=== PATIENT | female | born 1955 | race Asian ===

== ENCOUNTER → 2023-08-28 12:21 | Outpatient (CLI) | payer BC, SELFPAY ==
--- NOTE | 2023-08-28 12:22 | DI.RAD.S_ITS ---
Bone Density Report Name: PATSY KING Age: 68 Sex: Female Ethnicity: Date of : 1955 Indication: postmenopausal; screening for osteoporosis; Referring Provider: CB GUAJARDO Study: Bone densitometry was performed. Exam Date: August 28, 2023 Accession number: [id number] Bone Density: Region BMD T-score Z-score Classification AP Spine(L1-L4) 0.985 -0.6 1.3 Normal Femoral Neck (Left) 0.701 -1.3 0.2 Osteopenia Total Hip (Left) 0.930 -0.1 1.2 Normal Femoral Neck (Right) 0.673 -1.6 0.0 Osteopenia Total Hip (Right) 0.928 -0.1 1.2 Normal Total Hip Mean 0.929 -0.1 1.2 Normal World Health Organization criteria for BMD impression classify patients as: Normal (T-score at or above -1.0), Osteopenia (T-score between -1.0 and -2.5), or Osteoporosis (T-score at or below -2.5). 10-year Fracture Risk(1): Major Osteoporotic Fracture 8.6% Hip Fracture 0.9% Reported Risk Factors: [place] (), Neck BMD=0.673, BMI=32.5 (1) FRAX(R) Version 3.08. Fracture probability calculated for an untreated patient. Fracture probability may be lower if the patient has received treatment. Impression: The patient has low bone mass, based on the Right Femoral Neck T-score. The patient has an estimated ten-year risk of hip fracture of 0.9% and an estimated ten-year risk of major fracture of 8.6%, based on the WHO FRAX algorithm. Discussion: BONE DENSITY IS LOW AT ONE OR MORE SKELETAL SITES. This patient's lowest T-score is low at one or more skeletal sites. It meets the World Health Organization's (WHO) criteria for low bone mass (T-score between -1.0 and -2.5). The patient's 10-year risk of fracture as calculated by FRAX is less than the threshold where pharmacological therapy is recommended by the National Osteoporosis Foundation (NOF). However, all treatment decisions require clinical judgment and consideration of individual patient factors, including patient preferences, comorbidities, previous drug use, risk factors not captured in the FRAX model (e.g., frailty, falls, vitamin D deficiency, increased bone turnover, interval significant decline in bone density) and possible under or overestimation of fracture risk by FRAX. The patient should follow a healthful lifestyle (good nutrition with adequate calcium and vitamin D, and appropriate weight-bearing exercise). Follow-Up: Consider repeating this study in 2 to 3 years to reassess this patient's status, or sooner if there is some new clinical indication. Reported by: ERMIAS PEÑA M.D. on 08/28/2023 1:09:00 PM.
--- NOTE | 2023-08-28 12:22 | DI.MG.S_ITS ---
BILATERAL DIGITAL SCREENING MAMMOGRAM 3D/2D WITH CAD: 08/28/2023 CLINICAL: Routine screening. Family history of breast cancer. No prior exams were available for comparison. Both breasts are heterogeneously dense, which may obscure small masses (category c / 51-75% glandular tissue). Current study was also evaluated with a Computer Aided Detection (CAD) system. No significant masses, calcifications, or other findings are seen in either breast. IMPRESSION: NEGATIVE There is no mammographic evidence of malignancy. A 1 year screening mammogram is recommended. Based on the Tyrer Cuzick model (a risk assessment model) the patient's lifetime risk is 10.4% and her 10 year risk is 5.3%. According to the ACR, ACS, and NCCN guidelines, an annual breast MRI exam along with mammogram is recommended if the patient's lifetime risk is 20% or greater. This exam was interpreted at Station ID: [id number]. NOTE: For mammograms, a report in lay terms will be sent to the patient. Approximately 15% of breast malignancies will not be visualized mammographically. In the management of a palpable breast mass, a negative mammogram must not discourage biopsy of a clinically suspicious lesion. Electronically Signed By: Jhonny chatman/navneet:09/05/2023 16:51:34 letter sent: Normal Exam ACR BI-RADS Category 1: Negative 3341F
== END ==
PROVIDERS: PCP Family Medicine; Referring Provider Family Medicine; Visit Provider Family Medicine
DX: Z12.31 Encounter for screening mammogram for malignant neoplasm of breast (principal); Z78.0 Asymptomatic menopausal state; M81.0 Age-related osteoporosis without current pathological fracture; M85.852 Other specified disorders of bone density and structure, left thigh; M85.851 Other specified disorders of bone density and structure, right thigh
CPT/HCPCS: 77063; 77067; 77080

== ENCOUNTER 2023-09-21 07:45 | Day surgery (SDC) | payer BC, SELFPAY ==
[2023-09-21] MEDS: LACTATED RINGERS 1,000 ML 150 ML IV (08:08)
[2023-09-21 08:11] VITALS: BP 130/76; PULSE 50; RESP 16; TEMP 36.1; O2SAT 100; BMI 32.2
--- NOTE | 2023-09-21 08:51 | P.HP_ITS ---
History of Present Illness History of Present Illness Date Patient Seen: 09/21/23 Time Patient Seen: 08:51 Chief complaint: Screening Colonoscopy Narrative: First colonoscopy, no family history for colon cancer. [facility] Surgical History Anesthesia History of section Family History Father Cancer Social History household members: family Smoking Status: Former smoker Tobacco: How many years used: 4 alcohol intake: current substance use type: does not use Meds Home Medications and Allergies Home Medications Medication Instructions Recorded Confirmed Type atorvastatin 40 mg tablet 40 mg PO DAILY 07/23/23 09/21/23 History lisinopril 5 mg tablet 5 mg PO DAILY #90 tabs 07/23/23 09/21/23 Rx meloxicam 15 mg tablet 15 mg PO DAILY 07/23/23 09/21/23 History metformin 500 mg tablet 500 mg PO BIDWMEAL #180 tabs 08/08/23 09/21/23 Rx Allergies Allergy/AdvReac Type Severity Reaction Status Date / Time No Known Drug Allergies Allergy Verified 09/21/23 08:06 Review of Systems Review of Systems ROS: Yes All systems reviewed with the patient and are negative except as otherwise documented Exam Vital Signs (past 8 hours): - 09/21/23 08:11 Temperature 97 F L Pulse Rate 50 L Respiratory Rate 16 Blood Pressure 130/76 Pulse Oximetry 100 Oxygen Delivery Method Room Air Oxygen Delivery Method Room Air Const General: cooperative and healthy appearing [facility] Head: normocephalic and atraumatic Eyes Conjunctivae: conjunctivae normal Sclera: sclerae normal Neck Neck: trachea midline Chest Chest: normal inspection of the chest Resp Effort & Inspection: normal respiratory effort and able to speak in complete sentences Cardio Rate: regular rate Rhythm: regular rhythm Skin General: turgor normal Neuro General: patient alert, patient awake and patient oriented x3 Cognition: normal cognition Psych Appearance: grossly normal Mental Status: mental status grossly normal Judgment: judgment good Assessment & Plan Assessment & Plan narrative: Colon cancer screening with colonoscopy using anesthesia Time Spent With Patient Time with patient: less than 30 minutes
--- NOTE | 2023-09-21 08:54 | PM.OP.COLON ---
Operative Date/Time/Diagnoses Date of procedure: 09/21/23 Time of procedure: 09:06 Pre-op diagnosis: Colon cancer screening Post-op diagnosis: same Procedure & Clinicians Study performed: Colonoscopy with anesthesia Same procedure as scheduled: Yes Indications: Colon cancer screening Surgeon: Ramona Mcallister Procedure Notes Procedure in detail: Preop diagnosis: Colon cancer screening Postop diagnosis: Same Operative procedure: Colonoscopy with anesthesia Surgeon: Jeanne Mcallister MD Findings: Normal colonoscopy with the exception of diverticulosis, no polyps. External hemorrhoid tags Procedure: Patient placed in a lateral position. Rectal exam performed showing normal tone no masses. Colonoscope inserted into the rectum and advanced to ileocecal valve with minimal difficulty. Retroflex was included in the rectum. Impression: Normal colonoscopy. Scant, small diverticulosis within the sigmoid colon and the cecum. Plan repeat colonoscopy in 10 years unless otherwise indicated by change in clinical condition Findings: divertiulosis Specimen(s): none sent Complications: none Post-procedure Recommendations: Colonoscopy in 10 years Follow up: as needed Disposition: PACU
[2023-09-21 09:12] VITALS: BP 90/50; PULSE 60; RESP 16; TEMP 36; O2SAT 98
[2023-09-21 09:17] VITALS: BP 90/56; PULSE 55; RESP 16; O2SAT 98
[2023-09-21 09:22] VITALS: BP 90/55; PULSE 61; RESP 16; TEMP 36.2; O2SAT 98
[2023-09-21 09:30] VITALS: BP 100/66; PULSE 61; RESP 16; TEMP 36.3; O2SAT 98
== END 2023-09-21 10:05 | disposition home or self-care (01) ==
PROVIDERS: PCP Family Medicine; Referring Provider Surgery; Visit Provider Surgery
PROC: 0DJD8ZZ Inspection of Lower Intestinal Tract, Via Natural or Artificial Opening Endoscopic (ICD-10-PCS; CPT 45378; principal; 2023-09-21 08:45)
DX: Z12.11 Encounter for screening for malignant neoplasm of colon (principal); K57.30 Diverticulosis of large intestine without perforation or abscess without bleeding
CPT/HCPCS: 45378; J2704

== ENCOUNTER → 2024-11-04 08:09 | Outpatient (CLI) | payer BC, SELFPAY ==
[2024-11-04 09:02] LABS: Alanine Aminotransferase 26 IU/L (<35); Albumin 4.2 g/dL (3.5-5.0); Albumin Globulin Ratio 1.4 (1.0-2.8); Alkaline Phosphatase 53 U/L (38-126); Aspartate Aminotransferase 26 IU/L (14-36); BUN Creatinine Ratio 32.8 (6-22); Bilirubin Total 0.7 mg/dL (0.2-1.3); Blood Urea Nitrogen 20 mg/dL (7-17); C-Reactive Protein Quant < 0.5 mg/dL (<1.0); Calcium 9.8 mg/dL (8.4-10.2); Carbon Dioxide 32 mmol/L (22-32); Chloride 104 mmol/L (98-107); Cholesterol 161 mg/dL (140-199); Estimated Glomerular Filt Rate > 60 mL/min (>60); Glucose 86 mg/dL (80-110); HDL Cholesterol 81 mg/dL (40-60); HEMOLYSIS < 15 (0-50); LDL Cholesterol Calculated 67 mg/dL (<100); Potassium 4.5 mmol/L (3.4-5.1); Sodium 139 mmol/L (137-145); Total Protein 7.2 g/dL (6.3-8.2); Triglycerides 66 mg/dL (35-150)
--- NOTE | 2024-11-04 13:31 | DI.US.S_ITS ---
LIMITED ULTRASOUND OF LEFT BREAST: 11/04/2024 CLINICAL: Palpable left breast lump. Comparison is made to exams dated: 11/04/2024 mammogram and 08/28/2023 mammogram - [facility]. Real-time ultrasound of the left breast 3 o'clock region was performed. Walker scale images of the real-time examination were reviewed. No significant abnormalities were seen sonographically in the left breast. IMPRESSION: NEGATIVE There is no sonographic evidence of malignancy. There is no abnormality seen in the left breast to correspond with the palpable abnormality and pain, however, clinical followup is recommended. Of note, the palpable area directly overlies a left lateral rib. Return to annual mammogram screening schedule is recommended. This exam was interpreted at Station ID: [id number]. Electronically Signed By: Addison Hassan M.D. ar/:11/05/2024 13:40:07 letter sent: Clinical Evaluation ACR BI-RADS Category 1: Negative
--- NOTE | 2024-11-04 13:31 | DI.MG.S_ITS ---
BILATERAL DIGITAL DIAGNOSTIC MAMMOGRAM 3D/2D: 11/04/2024 CLINICAL: Left breast pain and lump. Comparison is made to exams dated: 08/28/2023 mammogram - [facility] and 07/29/2021 mammogram - outside [facility]. The breasts are heterogeneously dense, which may obscure small masses (category c / 51-75% glandular tissue). No significant masses, calcifications, or other findings are seen in either breast. IMPRESSION: INCOMPLETE: NEED ADDITIONAL IMAGING EVALUATION There is no abnormality seen in the left breast to correspond with the palpable abnormality and pain in the lateral aspect. Targeted ultrasound is recommended for further evaluation and will be performed immediately following this exam. Based on the Tyrer Cuzick model (a risk assessment model) the patient's lifetime risk is 9.9% and her 10 year risk is 5.2%. According to the ACR, ACS, and NCCN guidelines, an annual breast MRI exam along with mammogram is recommended if the patient's lifetime risk is 20% or greater. This exam was interpreted at Station ID: [id number]. NOTE: For mammograms, a report in lay terms will be sent to the patient. Approximately 15% of breast malignancies will not be visualized mammographically. In the management of a palpable breast mass, a negative mammogram must not discourage biopsy of a clinically suspicious lesion. Electronically Signed By: Addison Hassan M.D. ar/:11/05/2024 13:38:52 ACR BI-RADS Category 0: Incomplete: Need Additional Imaging Evaluation
== END ==
LOC: MAMMO 08:10
PROVIDERS: PCP Family Medicine; Referring Provider Family Medicine; Visit Provider Family Medicine
DX: N64.4 Mastodynia (principal); R92.333 Mammographic heterogeneous density, bilateral breasts; E78.2 Mixed hyperlipidemia; R92.2 Inconclusive mammogram; I10 Essential (primary) hypertension; E11.9 Type 2 diabetes mellitus without complications
CPT/HCPCS: 36415; 76642; 77066; 80053; 80061; 86140; G0279

== ENCOUNTER → 2025-05-18 12:24 | Outpatient (CLI) | payer OTHER, SELFPAY ==
--- NOTE | 2025-05-18 12:26 | DI.RAD.S_ITS ---
PROCEDURE: XR CHEST 2V INDICATIONS: Cough TECHNIQUE: 2 views of the chest were acquired. COMPARISON: None. FINDINGS: Heart, mediastinum and pulmonary vascular: Heart is normal in size and configuration. Mediastinum is unremarkable. Pulmonary vascular is normal. Lungs: Clear Pleural spaces: Normal-no effusions or pneumothorax. IMPRESSION: Normal chest. Dictated by: Pedro Pablo Green M.D. on 05/19/2025 at 11:04 Approved by: Pedro Pablo Green M.D. on 05/19/2025 at 11:05
== END ==
LOC: RAD 12:26
PROVIDERS: PCP Family Medicine; Referring Provider Nurse Practitioner Family; Visit Provider Nurse Practitioner Family
DX: R05.9 Cough, unspecified (principal)
CPT/HCPCS: 71046